=== PATIENT | male | born 1965 | race Caucasian/White ===

== ENCOUNTER 2017-03-05 18:40 | Emergency (ER) | payer OTHER ==
[~2017-03-05] VITALS: Ht 172.7 cm; Wt 99.5 kg
[2017-03-05 18:43] VITALS: TEMP 36.7; Ht 172.7 cm; Wt 99.5 kg
[2017-03-05 19:03] VITALS: O2SAT 96
--- NOTE | 2017-03-05 19:12 | EMERGENCY ROOM VISIT NOTE ---
History Report prepared by Syedibprashanth: Julita Gomez Under the Supervision of: Twila CamachoO. First contact with patient: 18:47 Chief Complaint: CHEST PAIN Stated Complaint: CHEST PAIN, SQUEEZING PRESSURE ON HEART Nursing Triage Summary: "I have a heart monitor on because I was having tachycardic episodes and squeezing like CP since . Heart monitor has been on for two weeks. Chest pressure started at 1620 today, has not let up. History of Present Illness The patient is a 51 year old male who presents to the Emergency Room with complaints of persistent chest pain since 1629 this afternoon. He reports around , he started experiencing episodes of tachycardia and "squeezing chest pain". His Cocoa Press Operator, Dr. Alexandre with [facility], placed him on a heart monitor approximately 2 weeks ago. This afternoon, the pain started up again and "has not let up since". The pain has felt "squeezing" in nature. The patient denies any history of smoking. He drinks alcohol approximately twice a month. The patient denies any difficulty breathing, nausea, vomiting, diarrhea or urinary symptoms. He states the only medications he takes on regular basis are for allergies. Source of History: patient Onset: 1629 this afternoon Position: chest Quality: other ("squeezing") Timing: other (persistent) Associated Symptoms: No SOB, No nausea, No vomiting, No diarrhea, No urinary symptoms Review of Systems See HPI for pertinent positives & negatives. A total of 10 systems reviewed and were otherwise negative. Past Medical & Surgical Medical Problems: (1) Seasonal allergies Family History Not obtainable due to adoption Social History Smoking Status: Never Smoker Alcohol Use: occasionally Drug Use: none Marital Status: Housing Status: lives alone Occupation Status: employed Current/Historical Medications Scheduled Loratadine (Claritin), 10 MG PO DAILY Oyster Shell (Calcium), 500 MG PO DAILY Triamcinolone Acetonide (Nasal (Nasacort Allergy 24Hr), 2 SPRAYS CHEKO DAILY Scheduled PRN Azelastine HCl (Azelastine Hydrochloride), 2 SPRAYS CHEKO BID PRN for Allergy Symptoms Allergies Coded Allergies: Penicillins (Unverified Allergy, Unknown, _, 05/06/15) Physical Exam Vital Signs Date Time Temp Pulse Resp B/P (MAP) Pulse Ox O2 Delivery O2 Flow Rate FiO2 03/05/17 20:26 88 20 151/79 96 03/05/17 19:54 92 20 128/74 97 Room Air 03/05/17 19:15 68 03/05/17 19:03 96 Room Air 03/05/17 19:03 96 Room Air 03/05/17 18:43 36.7 83 18 214/88 96 Room Air 03/05/17 18:43 96 Physical Exam GENERAL: Patient is awake, alert, and in no acute distress. Patient is resting comfortably and showing no signs of anxiety EYES: The conjunctivae are clear. The pupils are round and reactive. EARS, NOSE, MOUTH AND THROAT: The nose is without any evidence of any deformity. Mucous membranes are moist tongue is midline NECK: The neck is nontender and supple. RESPIRATORY: Normal respiratory effort is noted there is no evidence of wheezing rhonchi or rales CARDIOVASCULAR: Regular rate and rhythm noted there no murmurs rubs or gallops normal S1 normal S2 GASTROINTESTINAL: The abdomen is soft. Bowel sounds are present in all quadrants. Abdomen is nontender MUSCULOSKELETAL/EXTREMITIES: There is no evidence of gross deformity full range of motion is noted in the hips and shoulders SKIN: There is no obvious evidence of any rash. There are no petechiae, pallor or cyanosis noted. NEUROLOGIC: Patient is awake alert and oriented x3 strength is symmetric patellar reflexes are 2+ bilaterally Medical Decision & Procedures ER Provider Diagnostic Interpretation: Radiology results as stated below per my review and radiologist interpretation: CHEST ONE VIEW PORTABLE CLINICAL HISTORY: CHEST PAIN pain COMPARISON STUDY: 04/13/2013 FINDINGS: Slight interstitial prominence throughout the mid to lower lung regions bilaterally. No focal infiltrate although the appearance suggests mild bronchitis. Diaphragms are smooth. IMPRESSION: Mild bronchitis The above report was generated using voice recognition software. It may contain grammatical, syntax or spelling errors. Electronically signed by: Keo Gutierres M.D. 03/05/2017 7:19 PM Laboratory Results 03/05/17 19:00 Red Blood Count 5.24, Mean Corpuscular Volume 87.6, Mean Corpuscular Hemoglobin 29.8, Mean Corpuscular Hemoglobin Concent 34.0, Mean Platelet Volume 9.3, Neutrophils (%) (Auto) 61.5, Lymphocytes (%) (Auto) 26.2, Monocytes (%) (Auto) 9.1, Eosinophils (%) (Auto) 2.7, Basophils (%) (Auto) 0.3, Neutrophils # (Auto) 5.41, Lymphocytes # (Auto) 2.31, Monocytes # (Auto) 0.80, Eosinophils # (Auto) 0.24, Basophils # (Auto) 0.03 03/05/17 19:00 Test 03/05/17 19:00 White Blood Count 8.81 K/uL (4.8-10.8) Red Blood Count 5.24 M/uL (4.7-6.1) Hemoglobin 15.6 g/dL (14.0-18.0) Hematocrit 45.9 % (42-52) Mean Corpuscular Volume 87.6 fL (80-100) Mean Corpuscular Hemoglobin 29.8 pg (25-34) Mean Corpuscular Hemoglobin Concent 34.0 g/dl (32-36) Platelet Count 226 K/uL (130-400) Mean Platelet Volume 9.3 fL (7.4-10.4) Neutrophils (%) (Auto) 61.5 % Lymphocytes (%) (Auto) 26.2 % Monocytes (%) (Auto) 9.1 % Eosinophils (%) (Auto) 2.7 % Basophils (%) (Auto) 0.3 % Neutrophils # (Auto) 5.41 K/uL (1.4-6.5) Lymphocytes # (Auto) 2.31 K/uL (1.2-3.4) Monocytes # (Auto) 0.80 K/uL (0.11-0.59) Eosinophils # (Auto) 0.24 K/uL (0-0.5) Basophils # (Auto) 0.03 K/uL (0-0.2) RDW Standard Deviation 40.7 fL (36.4-46.3) RDW Coefficient of Variation 12.7 % (11.5-14.5) Immature Granulocyte % (Auto) 0.2 % Immature Granulocyte # (Auto) 0.02 K/uL (0.00-0.02) Prothrombin Time 10.4 SECONDS (9.0-12.0) Prothromb Time International Ratio 1.0 (0.9-1.1) Activated Partial Thromboplast Time 27.3 SECONDS (21.0-31.0) Partial Thromboplastin Ratio 1.1 Anion Gap 7.0 mmol/L (3-11) Est Creatinine Clear Calc Drug Dose 85.9 ml/min Estimated GFR () 84.3 Estimated GFR (Non- 72.8 BUN/Creatinine Ratio 18.6 (10-20) Calcium Level 9.3 mg/dl (8.5-10.1) Total Bilirubin 1.0 mg/dl (0.2-1) Direct Bilirubin 0.2 mg/dl (0-0.2) Aspartate Amino Transf (AST/SGOT) 29 U/L (15-37) Alanine Aminotransferase (ALT/SGPT) 45 U/L (12-78) Alkaline Phosphatase 51 U/L (45-117) Troponin I < 0.015 ng/ml (0-0.045) Total Protein 7.8 gm/dl (6.4-8.2) Albumin 4.4 gm/dl (3.4-5.0) Lipase 184 U/L (73-393) Laboratory results per my review. ECG Indication: chest pain Rate (beats per minute): 86 Rhythm: normal sinus Findings: no ectopy, other (no acute ST segment abnormalities) Change: no significant change (No change from 02/13/13) ED Course 184: The patient was evaluated in room B8. A complete history and physical examination were performed. 2009: I reevaluated the patient. He is feeling well and is ready to go home. I discussed his results and discharge instructions and he verbalized complete understanding and agreement. Medical Decision Prior records/ancillary studies reviewed. Triage Nursing notes reviewed. The patient's history was concerning for chest pain. Differential diagnosis: Etiologies such as cardiac ischemia, aortic dissection, pulmonary embolism, pneumonia, pneumothorax, musculoskeletal, infections, pericarditis, myocarditis , esophageal rupture, gastrointestinal, as well as others were entertained. HEART Score is 1. The patient is a 51-year-old male who presented to the emergency department for an evaluation of atypical chest pain. The patient's pain was not exertional related. The patient was seen by a patient flow coordinator recently for palpitations. The patient has a two-week cardiac/vascular sonographer attached at this point. He has a follow- up appointment with cardiac schedule. He also has a follow-up stress test and echocardiogram. I discussed the patient's laboratory and radiographic studies with him. I also discussed the limitations of the emergency department workup for chest pain with him. He was encouraged to rest and avoid any strenuous activity. I also encouraged him to continue all medications as prescribed and return to the emergency department immediately symptoms change worsen or the need arises. Medication Reconcilliation Current Medication List: was personally reviewed by me Blood Pressure Screening Patient's blood pressure: Elevated blood pressure Blood pressure disposition: Referred to PCP Impression Primary Impression: Palpitations Additional Impression: Chest pain Scribe Attestation The scribe's documentation has been prepared under my direction and personally reviewed by me in its entirety. I confirm that the note above accurately reflects all work, treatment, procedures, and medical decision making performed by me. Departure Information Dispostion Home / Self-Care Referrals Sotreo Villaseñor M.D. (MEDICAL) (PCP) Patient Instructions ED Chest Pain Atypical Unkn Cause, ED Palpitations, [facility] Additional Instructions Continue all medications as prescribed. Follow-up with your primary care physician as well as your primary patient flow coordinator as scheduled. Return to the emergency department immediately if symptoms change worsen or the need arises. Rest and avoid any strenuous activity. Problem Qualifiers
[2017-03-05 19:15] LABS: BASO % 0.3 %; BASO ABS # 0.03 K/uL (0-0.2); EOS % 2.7 %; EOS ABS # 0.24 K/uL (0-0.5); HEMATOCRIT 45.9 % (42-52); HEMOGLOBIN 15.6 g/dL (14.0-18.0); IG# 0.02 K/uL (0.00-0.02); LYMPH % 26.2 %; LYMPH ABS # 2.31 K/uL (1.2-3.4); MEAN CELL VOLUME 87.6 fL (80-100); MEAN CORPUSCULAR HEMOGLOBIN 29.8 pg (25-34); MEAN PLATELET VOLUME 9.3 fL (7.4-10.4); MONO % 9.1 %; NEUT % 61.5 %; NEUT ABS # 5.41 K/uL (1.4-6.5); PLATELET COUNT 226 K/uL (130-400); RED CELL DISTRIBUTION WIDTH CV 12.7 % (11.5-14.5); RED CELL DISTRIBUTION WIDTH SD 40.7 fL (36.4-46.3); WHITE BLOOD COUNT 8.81 K/uL (4.8-10.8)
--- NOTE | 2017-03-05 19:21 | DIAGNOSTIC IMAGING REPORT ---
CHEST ONE VIEW PORTABLE CLINICAL HISTORY: CHEST PAIN pain COMPARISON STUDY: 04/13/2013 FINDINGS: Slight interstitial prominence throughout the mid to lower lung regions bilaterally. No focal infiltrate although the appearance suggests mild bronchitis. Diaphragms are smooth. IMPRESSION: Mild bronchitis The above report was generated using voice recognition software. It may contain grammatical, syntax or spelling errors. Electronically signed by: Keo Gutierres M.D. 03/05/2017 7:19 PM Dictated Date/Time: 03/05/2017 7:18 PM
[2017-03-05 19:27] LABS: PTT PATIENT 27.3 SECONDS (21.0-31.0)
[2017-03-05 19:33] LABS: ALBUMIN 4.4 gm/dl (3.4-5.0); ALT/SGPT 45 U/L (12-78); BLOOD UREA NITROGEN 21 mg/dl (7-18); CALCIUM 9.3 mg/dl (8.5-10.1); CARBON DIOXIDE 28 mmol/L (21-32); CREATININE 1.15 mg/dl (0.60-1.40); GLUCOSE 104 mg/dl (70-99); LIPASE 184 U/L (73-393); SODIUM 138 mmol/L (136-145)
[2017-03-05 19:38] LABS: ALKALINE PHOSPHATASE 51 U/L (45-117); AST/SGOT 29 U/L (15-37); TOTAL PROTEIN 7.8 gm/dl (6.4-8.2)
[2017-03-05] MEDS ORDERED: TRIA1SPR4 NAE (20:17)
[2017-03-05] MEDS ORDERED: AZEL0.1S2 NAE (20:17)
[2017-03-05] MEDS ORDERED: OYST500T47 PO (20:17)
[2017-03-05] MEDS ORDERED: CLR10 PO (20:17)
[2017-03-05 20:26] VITALS: BP 151/79; PULSE 88; O2SAT 96
== END 2017-03-05 20:28 | disposition home or self-care (01) ==
LOC: C.EDB 18:43
DX: R00.2 Palpitations (principal); R07.9 Chest pain, unspecified